=== PATIENT | female | born 1990 | race Caucasian/White ===

== ENCOUNTER 2017-08-16 08:42 | Outpatient (CLI) | payer MEDICAID ==
[~2017-08-16 08:42] MED LIST: IBUP-1222 PO; ONDA8TAB12 PO; OXYC-302 PO; PREN1TAB52 PO
[2017-08-16 09:04] VITALS: BP 126/73
== END 2017-08-16 09:55 | disposition home or self-care (01) ==
LOC: LDOP 08:42
PROVIDERS: ATTEND Obstetrics & Gynecology
DX: O26.893 Other specified pregnancy related conditions, third trimester (principal); O11.3 Pre-existing hypertension with pre-eclampsia, third trimester; R10.2 Pelvic and perineal pain; Z3A.35 35 weeks gestation of pregnancy
CPT/HCPCS: 59025; 81003; 87086; 99211; G0463

== ENCOUNTER 2017-09-04 18:40 | Outpatient (CLI) | payer MEDICAID ==
[~2017-09-04] VITALS: Ht 167.6 cm; Wt 108.1 kg
[2017-09-04 18:54] VITALS: BP 129/81
== END 2017-09-04 20:15 | disposition home or self-care (01) ==
LOC: LDOP 18:40
PROVIDERS: ATTEND Obstetrics & Gynecology
DX: O42.92 Full-term premature rupture of membranes, unspecified as to length of time between rupture and onset of labor (principal); O62.9 Abnormality of forces of labor, unspecified; O11.3 Pre-existing hypertension with pre-eclampsia, third trimester; Z3A.39 39 weeks gestation of pregnancy
CPT/HCPCS: 59025; 89060; 99211; G0463; Q0114

== ENCOUNTER 2017-09-07 11:55 | Outpatient (CLI) | payer MEDICAID ==
[~2017-09-07] VITALS: Ht 167.6 cm; Wt 111.3 kg
[2017-09-07 13:01] LABS: HEMATOCRIT 40.4 % (34.6-47.8); HEMOGLOBIN 13.6 g/dL (11.7-16.4)
[2017-09-07 13:11] LABS: BLOOD UREA NITROGEN 7 mg/dL (7-18)
[2017-09-07 13:17] LABS: ASPARTATE AMINO TRANSFERASE 16 U/L (15-37)
== END 2017-09-07 13:45 | disposition home or self-care (01) ==
LOC: LDOP 11:55
PROVIDERS: ATTEND Obstetrics & Gynecology
DX: O11.3 Pre-existing hypertension with pre-eclampsia, third trimester (principal); Z3A.39 39 weeks gestation of pregnancy
CPT/HCPCS: 36415; 59025; 80053; 81001; 82248; 82570; 84156; 84550; 85025; 99211; G0463

== ENCOUNTER 2017-09-11 06:23 | Inpatient (IN) | payer MEDICAID ==
[~2017-09-11] VITALS: Ht 167.6 cm; Wt 104.5 kg
[2017-09-11] MEDS ORDERED: NEWBORN KIT ONE (06:49)
[2017-09-11] MEDS ORDERED: OXYTOCIN 30U/ 0.9% NaCL 500ML 500 ML IV ONE (06:51)
[2017-09-11] MEDS ORDERED: OXYTOCIN 30U/ 0.9% NaCL 500ML 500 ML IV PRN (06:51)
[2017-09-11] MEDS ORDERED: CALCIUM CARBONATE 500 MG TAB.CHEW PO PRN (07:00)
[2017-09-11] MEDS ORDERED: TERBUTALINE 1 MG/ML, 1ML IVPush PRN (07:00)
[2017-09-11] MEDS ORDERED: ONDANSETRON 2MG/ML, 2ML IVPush PRN (07:00)
[2017-09-11] MEDS ORDERED: METOCLOPRAMIDE 5 MG/ML, 2ML IVPush PRN (07:00)
[2017-09-11] MEDS ORDERED: SODIUM CITRATE/CITRIC ACID 30 ML UDC PO PRN (07:00)
[2017-09-11] MEDS ORDERED: FENTANYL PF 100 MCG/2ML IV PRN (07:00)
[2017-09-11] MEDS ORDERED: LIDOCAINE 1%, 20ML ONE (07:07)
[2017-09-11] MEDS ORDERED: OXYTOCIN 30U/ 0.9% NaCL 500ML 500 ML ONE ×2 (07:07→21:32)
[2017-09-11] MEDS ORDERED: MISOPROSTOL 200 MCG TABLET ONE (07:07)
[2017-09-11 07:17] LABS: HEMATOCRIT 40.5 % (34.6-47.8); HEMOGLOBIN 13.7 g/dL (11.7-16.4); WHITE BLOOD COUNT 10.6 x10^3/uL (3.4-10)
[2017-09-11 07:21] VITALS: BP 126/77
[2017-09-11 07:29] LABS: BLOOD UREA NITROGEN 6 mg/dL (7-18)
[2017-09-11 07:32] LABS: ASPARTATE AMINO TRANSFERASE 18 U/L (15-37)
[2017-09-11] MEDS: LACTATED RINGERS 1,000 ML IV SCH ×2 (08:14→20:11)
[2017-09-11] MEDS ORDERED: FENTANYL PF 100 MCG/2ML ONE ×2 (17:32→18:23)
[2017-09-11] MEDS: FENTANYL PF 100 MCG/2ML IVPush PRN ×2 (17:39→18:38)
[2017-09-11] MEDS ORDERED: LACTATED RINGERS 1,000 ML IV SCH (18:52)
[2017-09-11] MEDS ORDERED: FENTANYL/BUPIV./NS/PF 250 ML EPIDCONT SCH (18:52)
[2017-09-11] MEDS ORDERED: FENTANYL/BUPIV./NS/PF 250 ML EPIDCONT ONE ×2 (18:55→18:58)
[2017-09-11] MEDS ORDERED: BUPIVACAINE/PF 0.25% ONE (18:55)
[2017-09-11] MEDS ORDERED: BUPIVACAINE 0.25% ONE (18:58)
[2017-09-11] MEDS ORDERED: NALOXONE 0.4 MG/ML, 1ML IVPush PRN (19:00)
[2017-09-11] MEDS ORDERED: LACTATED RINGERS 1,000 ML IVBOLUS PRN (19:00)
[2017-09-11] MEDS ORDERED: EPHEDRINE 50 MG/ML, 1ML IVPush PRN (19:00)
[2017-09-11] MEDS ORDERED: ONDANSETRON 2MG/ML, 2ML IV PRN (20:30)
[2017-09-11] MEDS ORDERED: OXYcodone/APAP 5/325MG TABLET PO PRN ×2 (20:30)
[2017-09-11] MEDS ORDERED: MISOPROSTOL 200 MCG TABLET PR PRN (20:30)
[2017-09-11] MEDS ORDERED: DOCUSATE 100 MG CAPSULE PO PRN (20:30)
[2017-09-11] MEDS: OXYTOCIN 30U/ 0.9% NaCL 500ML 500 ML IV SCH (21:40)
[2017-09-11] MEDS ORDERED: IBUPROFEN 600 MG TABLET ONE (22:01)
[2017-09-11] MEDS: IBUPROFEN 600 MG TABLET PO PRN (22:03)
[2017-09-11 23:20] VITALS: BP 127/82
[2017-09-12 00:25] VITALS: BP 119/72
[2017-09-12] MEDS: IBUPROFEN 600 MG TABLET PO PRN ×3 (04:03→18:48)
[2017-09-12 04:06] VITALS: BP 118/75
[2017-09-12 06:06] LABS: HEMOGLOBIN 12.5 g/dL (11.7-16.4); WHITE BLOOD COUNT 13.4 x10^3/uL (3.4-10)
[2017-09-12] MEDS: OXYTOCIN 30U/ 0.9% NaCL 500ML 500 ML IV SCH ×2 (06:24→16:24)
[2017-09-12 07:45] VITALS: BP 128/90
[2017-09-12] MEDS ORDERED: IBUP-1222 PO (08:17)
[2017-09-12] MEDS ORDERED: PRENATAL VIT/IRON/FA 1 EACH TABLET PO SCH (09:00)
[2017-09-12 11:32] VITALS: BP 131/87
[2017-09-12 15:45] VITALS: BP 131/92
[2017-09-12 19:35] VITALS: BP 134/91
== END 2017-09-12 21:00 | disposition home or self-care (01) | DRG 775 ==
LOC: LDIP 06:23 → 2NW 23:00
PROVIDERS: ADMIT Obstetrics & Gynecology; ATTEND Obstetrics & Gynecology
PROC: 10E0XZZ Delivery of Products of Conception, External Approach (ICD-10-PCS; principal; 2017-09-11)
PROC: 3E0R3BZ Introduction of Anesthetic Agent into Spinal Canal, Percutaneous Approach (ICD-10-PCS; 2017-09-11)
PROC: 00HU33Z Insertion of Infusion Device into Spinal Canal, Percutaneous Approach (ICD-10-PCS; 2017-09-11)
DX: O69.81X0 Labor and delivery complicated by cord around neck, without compression, not applicable or unspecified (principal); Z37.0 Single live birth; Z3A.39 39 weeks gestation of pregnancy
CPT/HCPCS: 36415; 80053; 81001; 82248; 84550; 85025; 86850; 86900; J3010; J3490; J2590; J7120

== ENCOUNTER → 2020-06-10 | Outpatient (CLI) | payer MEDICAID ==
[~2020-06-10] MED LIST changes: +sertraline PO
[2020-06-10 11:41] LABS: BASOPHILS # (AUTO) 0.03 x10^3/uL (0-0.1); BASOPHILS % (AUTO) 0 % (0-1); EOSINOPHILS # (AUTO) 0.18 x10^3/uL (0-0.4); EOSINOPHILS % (AUTO) 2 % (1-7); LYMPHOCYTES # (AUTO) 2.51 x10^3/uL (1-3.4); LYMPHOCYTES % (AUTO) 22 % (22-44); MD NO; MEAN CORPUSCULAR HEMOGLOBIN 27.8 pg (27.0-34.8); MEAN CORPUSCULAR HGB CONC 32.2 g/dL (32.4-35.8); MONOCYTES # (AUTO) 0.52 x10^3/uL (0.2-0.8); MONOCYTES % (AUTO) 5 % (2-9); NEUTROPHILS # (AUTO) 8.42 x10^3/uL (1.8-6.8); NEUTROPHILS % (AUTO) 72 % (42-75); PLATELET COUNT 331 x10^3/uL (130-400); RED BLOOD COUNT 5.18 x10^6/uL (3.82-5.3); RED CELL DISTRIBUTION WIDTH 13.9 % (9.6-15.2)
[2020-06-10 11:51] LABS: ANION GAP 6 mmol/L (5-15); CALCIUM 9.3 mg/dL (8.5-10.1); CHLORIDE 109 mmol/L (98-107)
[2020-06-10 12:33] LABS: HCG UR SG 1.029 (1.003-1.030)
== END | disposition home or self-care (01) ==
LOC: STAR 10:57
PROVIDERS: ATTEND Obstetrics & Gynecology
DX: Z01.812 Encounter for preprocedural laboratory examination (principal); Z20.828 Contact with and (suspected) exposure to other viral communicable diseases; N92.0 Excessive and frequent menstruation with regular cycle
CPT/HCPCS: 36415; 80048; 81025; 85025; 87635